=== PATIENT | female | born 1975 | race Caucasian/White ===

== ENCOUNTER 2016-09-19 21:15 | Emergency (ER) | payer MEDICAID ==
[2016-09-19] MEDS ORDERED: HYDROcod/ACETAM 5/325 MG TABLET PO STA (22:21)
[2016-09-19] MEDS ORDERED: HYDROcod/ACETAM 5/325 MG TABLET ONE (22:22)
[2016-09-19] MEDS ORDERED: HYDROcod/ACET 5/325 Prepack 6 PO STA (22:45)
[2016-09-19] MEDS ORDERED: HYDROcod/ACET 5/325 Prepack 6 PO ONE (22:45)
== END 2016-09-19 23:28 | disposition home or self-care (01) ==
DX: S52.572A Other intraarticular fracture of lower end of left radius, initial encounter for closed fracture (principal); W01.0XXA Fall on same level from slipping, tripping and stumbling without subsequent striking against object, initial encounter; Y92.481 Parking lot as the place of occurrence of the external cause; F17.200 Nicotine dependence, unspecified, uncomplicated
CPT/HCPCS: 29125; 73110; 99283; A9270